=== PATIENT | female | born 1960 | race Caucasian/White ===

== ENCOUNTER 2021-01-30 11:29 | Emergency (ER) | payer OTHER ==
[~2021-01-30 11:29] MED LIST: ALAVERT D-12 A1 EACH PO; BIOTIN PO; CALCITONIN; CALCITONIN-SAL3.7 ML; CARAFATE1 GM/10 ML PO; FLAGYL500 MG PO; FLUZONE QU60 MCG/013 IM; GABAPENTIN100 MG PO; LORTAB 5-325 M1 EACH PO; NORCO 5-325 TA1 EACH PO; OMEPRAZOLE20 M1 PO; OMEPRAZOLE40 MG PO; PREMARIN VAG CR30 GM VG; PREPLUS CA-FE1 EACH PO; PRESERVISION A1 EAC2 PO; PROTONIX40 MG PO; STIOLTO RESPIMAT 2.5 INH; SYNTHROID125 MCG PO; VENTOLIN HFA 66.7 GM INH; [UNRECOGNIZED DRUG - OTHER] INH
[2021-01-30 14:23] LABS: HEMOGLOBIN 15.4 gm/dl (12.3-15.3); RED BLOOD COUNT 5.07 M/UL (4.00-5.10); WHITE BLOOD COUNT 13.3 K/UL (4.5-11.0)
[2021-01-30 14:43] LABS: BUN/CREATININE RATIO 18 (0-10)
[2021-01-30] MEDS ORDERED: BENADRYL ALLERG25 MG PO (16:49)
[2021-01-30] MEDS ORDERED: COMPAZINE 10MG10 MG PO (16:49)
== END 2021-01-30 17:43 | disposition home or self-care (01) ==
LOC: ER1 11:29
DX: U07.1 COVID-19 (principal); K21.9 Gastro-esophageal reflux disease without esophagitis; J44.9 Chronic obstructive pulmonary disease, unspecified
CPT/HCPCS: 36600; 71045; 80053; 82803; 83690; 85025; 96374; 96375; 99284; J0780; J1200; J2270; J2405; Q9967; U0002

== ENCOUNTER → 2021-07-12 | Outpatient (CLI) | payer OTHER ==
[~2021-07-12] MED LIST changes: +BENADRYL ALLERG25 MG PO; +COMPAZINE 10MG10 MG PO
== END ==
LOC: CT 14:11
DX: R22.43 Localized swelling, mass and lump, lower limb, bilateral (principal); J43.9 Emphysema, unspecified; K76.0 Fatty (change of) liver, not elsewhere classified; R18.8 Other ascites
CPT/HCPCS: 71260; Q9967